=== PATIENT | female | born 1985 | race Caucasian/White ===

== ENCOUNTER 2017-10-27 15:50 | Emergency (ER) | payer OTHER ==
[~2017-10-27] VITALS: Ht 170.2 cm; Wt 90.7 kg
[~2017-10-27 15:50] MED LIST: BCP; CYCL10 PO; DICL.1SO OD; HYDACE5 PO; IBUP800 PO; MAGCIT300 PO; PENVK500 PO; SULF10OPSA OU
[2017-10-27] MEDS ORDERED: Ultram50 MG PO (16:19)
[2017-10-27] MEDS ORDERED: Cleocin HCl300 MG PO (16:19)
[2017-10-27] MEDS ORDERED: Depo-Prove150 MG/11 IM (16:20)
== END 2017-10-27 16:40 | disposition home or self-care (01) ==
LOC: ER 15:50
DX: K02.9 Dental caries, unspecified (principal); Z88.8 Allergy status to other drugs, medicaments and biological substances
CPT/HCPCS: 99281

== ENCOUNTER 2018-11-11 11:35 | Emergency (ER) | payer OTHER ==
[~2018-11-11] VITALS: Ht 170.2 cm; Wt 102.1 kg
[~2018-11-11 11:35] MED LIST changes: +Cleocin HCl300 MG PO; +Depo-Prove150 MG/11 IM; +Ultram50 MG PO
[2018-11-11] MEDS ORDERED: IBUP800 PO (12:08)
[2018-11-11 12:15] LABS: BASOPHILS ABSOLUTE AUTO 0.06 K/mm3 (0.00-0.23); BASOPHILS PERCENT AUTO 1 % (0-2); EOSINOPHILS ABSOLUTE AUTO 0.29 K/mm3 (0.00-0.68); EOSINOPHILS PERCENT AUTO 2 % (0-6); Hematocrit 47.5 % (33.0-51.0); Hemoglobin 16.1 g/dL (11.5-16.0); IMMATURE GRAN ABSOLUTE AUTO 0.05 K/mm3 (0.00-0.10); IMMATURE GRAN PERCENT AUTO 0 % (0-1); LYMPHOCYTES ABSOLUTE AUTO 3.86 K/mm3 (0.84-5.20); LYMPHOCYTES PERCENT AUTO 31 % (21-46); MONOCYTES ABSOLUTE AUTO 0.77 K/mm3 (0.16-1.47); MONOCYTES PERCENT AUTO 6 % (4-13); Mean Corpuscular HGB 30.6 pg (26.0-34.0); Mean Corpuscular HGB Conc 33.9 g/dL (31.5-36.5); Mean Corpuscular Volume 90 fL (80-100); Mean Platelet Volume 9.6 fL (9.1-12.4); NEUTROPHILS ABSOLUTE AUTO 7.27 K/mm3 (1.96-9.15); NEUTROPHILS PERCENT AUTO 59 % (41-73); Platelet Count 272 K/mm3 (150-400); RDW Standard Deviation 39.6 fL (35.1-46.3); Red Blood Cell Count 5.27 M/mm3 (3.80-5.20)
[2018-11-11 12:31] LABS: Free Thyroxine 0.96 ng/dL (0.70-1.60); Troponin I <0.015 ng/mL (0.000-0.040)
[2018-11-11 12:32] LABS: Alanine Aminotransfer (ALT/SGP 44 U/L (12-78); Albumin, Blood 4.1 g/dL (3.4-5.0); Albumin/Globulin Ratio 1.1 (0.8-1.8); Alk Phos 77 U/L (50-136); Anion Gap 8 mmol/L (6-16); Aspartate Aminotrans (AST/SGOT 22 U/L (12-37); Bilirubin, Total 0.8 mg/dL (0.1-1.0); Blood Urea Nitrogen 12 mg/dL (8-24); Bun/Creatinine Ratio 12.1 (12.0-20.0); CO2, Blood 22 mmol/L (21-32); Calcium, Blood 8.7 mg/dL (8.5-10.1); Chloride, Blood 110 mmol/L (98-108); Creatinine, Blood 0.99 mg/dL (0.40-1.00); Globulin, Blood 3.7 g/dL (2.2-4.0); Glomerular Filtration Rate >60 (60-); Glucose, Blood 114 mg/dL (70-99); Potassium, Blood 3.5 mmol/L (3.5-5.5); Sodium, Blood 140 mmol/L (136-145); Total Protein, Blood 7.8 g/dL (6.4-8.2)
[2018-11-11 12:53] LABS: Source, Urine Clean Catch
[2018-11-11 12:59] LABS: Bilirubin, Urine Neg (Neg); Blood, Urine Neg (Neg); Glucose Qualitative, Urine Neg (Neg); Ketones, Urine Neg (Neg); Leukocyte Esterase, Urine Neg (Neg); Nitrite, Urine Neg (Neg); Protein, Urine Neg (Neg); Specific Gravity, Urine 1.015 (1.003-1.022); Urobilinogen, Urine NORM (Normal)
[2018-11-11 13:01] LABS: Appearance, Urine Clear (Clear); Color, Urine Yellow (P-Yellow)
== END 2018-11-11 13:28 | disposition home or self-care (01) ==
LOC: ER 11:35
PROVIDERS: Emergency Medicine
DX: I47.1 Supraventricular tachycardia (principal); Z88.8 Allergy status to other drugs, medicaments and biological substances; Z79.899 Other long term (current) drug therapy
CPT/HCPCS: 36415; 80053; 81003; 84439; 84443; 84484; 85025; 93005; 93010; 96374; 99285-25; J0153; J2060; J7030

== ENCOUNTER → 2018-11-24 | Outpatient (CLI) | payer OTHER ==
[2018-11-26 21:06] LABS: METANEPHRINE, UR 181 ug/L (Undefined)
== END | disposition home or self-care (01) ==
LOC: LAB SHORT 09:28 → LAB 09:28
PROVIDERS: Physician Assistant Medical
DX: I47.1 Supraventricular tachycardia (principal)
CPT/HCPCS: 81050; 83835

== ENCOUNTER 2019-05-07 19:31 | Emergency (ER) | payer OTHER ==
[~2019-05-07] VITALS: Ht 170.2 cm; Wt 105.7 kg
[2019-05-07] MEDS ORDERED: AMOCLA875 PO (19:37)
[2019-05-07] MEDS ORDERED: Pepcid20 MG PO (20:57)
[2019-05-07] MEDS ORDERED: EPIPEN 2-P0.3 MG/0.3 IM (20:57)
[2019-05-07] MEDS ORDERED: Prednisone20 MG PO (20:57)
== END 2019-05-07 23:29 | disposition home or self-care (01) ==
LOC: ER 19:31
DX: L50.9 Urticaria, unspecified (principal); T36.0X5A Adverse effect of penicillins, initial encounter; Z88.8 Allergy status to other drugs, medicaments and biological substances
CPT/HCPCS: 96361; 96374; 96375; 96376; 99284-25; J1100; J1200; J7030

== ENCOUNTER → 2019-06-18 | Outpatient (CLI) | payer OTHER ==
[~2019-06-18] MED LIST changes: +AMOCLA875 PO; +EPIPEN 2-P0.3 MG/0.3 IM; +Pepcid20 MG PO; +Prednisone20 MG PO
== END | disposition home or self-care (01) ==
LOC: LAB EV 17:25 → LAB SHORT 17:25
DX: R10.10 Upper abdominal pain, unspecified (principal)
CPT/HCPCS: 87338

== ENCOUNTER 2020-08-18 08:18 | Day surgery (SDC) | payer OTHER ==
[2020-08-16 12:28] LABS: BASOPHILS ABSOLUTE AUTO 0.05 K/mm3 (0.00-0.23); BASOPHILS PERCENT AUTO 1 % (0-2); EOSINOPHILS ABSOLUTE AUTO 0.34 K/mm3 (0.00-0.68); EOSINOPHILS PERCENT AUTO 6 % (0-6); Hematocrit 45.4 % (33.0-51.0); Hemoglobin 15.2 g/dL (11.5-16.0); IMMATURE GRAN ABSOLUTE AUTO 0.04 K/mm3 (0.00-0.10); IMMATURE GRAN PERCENT AUTO 1 % (0-1); LYMPHOCYTES ABSOLUTE AUTO 1.97 K/mm3 (0.84-5.20); LYMPHOCYTES PERCENT AUTO 34 % (21-46); MONOCYTES ABSOLUTE AUTO 0.34 K/mm3 (0.16-1.47); MONOCYTES PERCENT AUTO 6 % (4-13); Mean Corpuscular HGB 29.7 pg (26.0-34.0); Mean Corpuscular HGB Conc 33.5 g/dL (31.5-36.5); Mean Corpuscular Volume 89 fL (80-100); Mean Platelet Volume 9.4 fL (9.1-12.4); NEUTROPHILS ABSOLUTE AUTO 3.08 K/mm3 (1.96-9.15); NEUTROPHILS PERCENT AUTO 53 % (41-73); Platelet Count 227 K/mm3 (150-400); RDW Coefficient Variation 12.5 % (11.7-14.2); RDW Standard Deviation 41.1 fL (35.1-46.3); Red Blood Cell Count 5.12 M/mm3 (3.80-5.20); White Blood Cell Count 5.82 K/mm3 (4.00-11.30)
[~2020-08-18] VITALS: Ht 165.1 cm; Wt 129.5 kg
[~2020-08-18 08:18] MED LIST changes: +ACET120S; +DULO60 PO; +METO50ER PO; +OMEP20ER
--- NOTE | 2020-08-18 08:50 | NUR ---
Ambulatory in Day Surgery. History, Chart, Medications and Allergies reviewed before start of procedure. Lungs clear T/O to Auscultation. Patient confirms NPO status and agrees with scheduled surgery.
[2020-08-18] MEDS ORDERED: ZYRTEC10 M2 PO (08:55)
[2020-08-18 09:56] LABS: Alanine Aminotransfer (ALT/SGP 58 U/L (12-78); Albumin/Globulin Ratio 1.1 (0.8-1.8); Alk Phos 79 U/L (50-136); Anion Gap 5 mmol/L (6-16); Aspartate Aminotrans (AST/SGOT 27 U/L (12-37); Bilirubin, Total 0.6 mg/dL (0.1-1.0); Blood Urea Nitrogen 14 mg/dL (8-24); Bun/Creatinine Ratio 16.1 (12.0-20.0); CO2, Blood 24 mmol/L (21-32); Calcium, Blood 9.3 mg/dL (8.5-10.1); Chloride, Blood 111 mmol/L (98-108); Creatinine, Blood 0.87 mg/dL (0.40-1.00); Globulin, Blood 3.8 g/dL (2.2-4.0); Glomerular Filtration Rate >60 (60-); Glucose, Blood 100 mg/dL (70-99); Potassium, Blood 4.1 mmol/L (3.5-5.5); Sodium, Blood 140 mmol/L (136-145); Total Protein, Blood 7.8 g/dL (6.4-8.2)
--- NOTE | 2020-08-18 14:58 | NUR ---
ADMIT PT ARRIVED TO UNIT AT APROX 1415 FROM PACU. REAGAN/LAP SITES X'S 4 WITH DERMABOND C/D/I AND OPEN TO AIR. PT RATES PAIN 2. DENIES N/V. GIVEN CLEAR LIQUIDS.
--- NOTE | 2020-08-18 18:33 | NUR ---
SHIFT SUMMARY PT POD 0 REAGAN MORALES, DORIAN SITES X'S 4 C/D/I. NO INCREASED DRAINAGE ON LEO PAD FROM PREVIOUS ASSESSMENT. PARTIDA PATENT, DRAINING CLEAR YELLOW URINE. DENIES N/V, TOLERATING REGULAR DIET. PAIN TOLERABLE WITH PO PAIN MEDICATION PER EMAR.
[2020-08-19 04:30] LABS: BASOPHILS ABSOLUTE AUTO 0.02 K/mm3 (0.00-0.23); BASOPHILS PERCENT AUTO 0 % (0-2); EOSINOPHILS ABSOLUTE AUTO 0.04 K/mm3 (0.00-0.68); EOSINOPHILS PERCENT AUTO 0 % (0-6); Hematocrit 40.4 % (33.0-51.0); Hemoglobin 13.5 g/dL (11.5-16.0); IMMATURE GRAN ABSOLUTE AUTO 0.06 K/mm3 (0.00-0.10); IMMATURE GRAN PERCENT AUTO 1 % (0-1); LYMPHOCYTES PERCENT AUTO 17 % (21-46); MONOCYTES ABSOLUTE AUTO 0.57 K/mm3 (0.16-1.47); MONOCYTES PERCENT AUTO 6 % (4-13); Mean Corpuscular HGB 29.8 pg (26.0-34.0); Mean Corpuscular HGB Conc 33.4 g/dL (31.5-36.5); Mean Corpuscular Volume 89 fL (80-100); Mean Platelet Volume 9.6 fL (9.1-12.4); NEUTROPHILS ABSOLUTE AUTO 6.95 K/mm3 (1.96-9.15); NEUTROPHILS PERCENT AUTO 75 % (41-73); Platelet Count 195 K/mm3 (150-400); RDW Coefficient Variation 12.8 % (11.7-14.2); Red Blood Cell Count 4.53 M/mm3 (3.80-5.20); White Blood Cell Count 9.24 K/mm3 (4.00-11.30)
--- NOTE | 2020-08-19 07:36 | NUR ---
pt allows student to participate in care
--- NOTE | 2020-08-19 07:59 | NUR ---
SHIFT SUMMARY POD#1. AAOX4. DISCOMFORT CONTROLLED WITH 2 PAIN PILLS Q6H. NO NAUSEA/EMESIS. ABD INCISIONS X4 WITH WOUND GLUE C/D/I. GOOD PO INTAKE + OUTPUT. IVF INFUSING PER ORDERS + HELGA DC'D THIS AM. PT UP WALKING SBA, TOLERATING WELL. RESTED WELL THIS AM. PT CURRENTLY SITTING UP IN BED WATCHING TV WITH CALL LIGHT IN REACH.
[2020-08-19] MEDS ORDERED: HYDR1TAB94 PO (12:26)
[2020-08-19] MEDS ORDERED: IBU800 MG PO (12:27)
[2020-08-19] MEDS ORDERED: PROM25 PO (12:28)
--- NOTE | 2020-08-19 13:32 | NUR ---
DISCHARGE INSTRUCTIONS GONE OVER WITH PT. PT STATED UNDERSTANDING ON PAIN CONTROL, NEW MEDICATIONS AND FOLLOW UP. PRESCRIPTION GIVEN TO PT. BELONGINGS GATHERED AND GIVEN TO PT. PT ESCORTED OUT TO AWAITING RIDE BY RN.
== END 2020-08-19 13:17 | disposition home or self-care (01) ==
LOC: ORSCMMR 08:18 → ORD 09:30 → ORSCMMR 09:30 → SURS 13:47 → ORSCMMR 08-19 13:17 → SURS 08-19 13:17
PROVIDERS: Obstetrics & Gynecology
PROC: 0UT94ZZ Resection of Uterus, Percutaneous Endoscopic Approach (ICD-10-PCS; principal; 2020-08-18 09:30)
PROC: 0UT74ZZ Resection of Bilateral Fallopian Tubes, Percutaneous Endoscopic Approach (ICD-10-PCS; principal; 2020-08-18 09:30)
PROC: 8E0W4CZ Robotic Assisted Procedure of Trunk Region, Percutaneous Endoscopic Approach (ICD-10-PCS; principal; 2020-08-18 09:30)
DX: N92.0 Excessive and frequent menstruation with regular cycle (principal); N94.6 Dysmenorrhea, unspecified; N94.12 Deep dyspareunia; N80.3 Endometriosis of pelvic peritoneum; D25.9 Leiomyoma of uterus, unspecified; N94.89 Other specified conditions associated with female genital organs and menstrual cycle; I10 Essential (primary) hypertension; E66.01 Morbid (severe) obesity due to excess calories; Z68.42 Body mass index [BMI] 45.0-49.9, adult; Z79.899 Other long term (current) drug therapy
CPT/HCPCS: 58571; S2900; 36415; 80053; 84702; 85025; 86850; 86900; 86901; 88307; A9270; A9270-GY; J0690; J1100; J1885; J2250; J2405; J2704; J2765; J3010; J7120

== ENCOUNTER 2021-10-18 09:26 | Observation (INO) | payer OTHER ==
[~2021-10-18] VITALS: Ht 170.2 cm; Wt 127.0 kg
[~2021-10-18 09:26] MED LIST changes: +HYDR1TAB94 PO; +IBU800 MG PO; +PROM25 PO; +ZYRTEC10 M2 PO
[2021-10-18 10:20] LABS: BASOPHILS ABSOLUTE AUTO 0.07 K/mm3 (0.00-0.23); BASOPHILS PERCENT AUTO 1 % (0-2); EOSINOPHILS ABSOLUTE AUTO 0.39 K/mm3 (0.00-0.68); EOSINOPHILS PERCENT AUTO 5 % (0-6); Hematocrit 49.2 % (33.0-51.0); Hemoglobin 16.8 g/dL (11.5-16.0); IMMATURE GRAN ABSOLUTE AUTO 0.07 K/mm3 (0.00-0.10); IMMATURE GRAN PERCENT AUTO 1 % (0-1); LYMPHOCYTES ABSOLUTE AUTO 2.78 K/mm3 (0.84-5.20); LYMPHOCYTES PERCENT AUTO 32 % (21-46); MONOCYTES ABSOLUTE AUTO 0.71 K/mm3 (0.16-1.47); MONOCYTES PERCENT AUTO 8 % (4-13); Mean Corpuscular HGB 29.8 pg (26.0-34.0); Mean Corpuscular HGB Conc 34.1 g/dL (31.5-36.5); Mean Corpuscular Volume 87 fL (80-100); Mean Platelet Volume 9.5 fL (9.1-12.4); NEUTROPHILS ABSOLUTE AUTO 4.62 K/mm3 (1.96-9.15); NEUTROPHILS PERCENT AUTO 54 % (41-73); Platelet Count 270 K/mm3 (150-400); RDW Coefficient Variation 12.4 % (11.7-14.2); RDW Standard Deviation 39.9 fL (35.1-46.3); Red Blood Cell Count 5.63 M/mm3 (3.80-5.20); White Blood Cell Count 8.64 K/mm3 (4.00-11.30)
[2021-10-18 10:39] LABS: Albumin, Blood 4.3 g/dL (3.4-5.0); Bilirubin, Total 0.4 mg/dL (0.1-1.0); Bun/Creatinine Ratio 14.2 (12.0-20.0); Calcium, Blood 9.5 mg/dL (8.5-10.1); Creatinine, Blood 0.77 mg/dL (0.40-1.00); Globulin, Blood 4.2 g/dL (2.2-4.0); Potassium, Blood 3.8 mmol/L (3.5-5.5); Total Protein, Blood 8.5 g/dL (6.4-8.2)
--- NOTE | 2021-10-18 13:44 | NUR ---
PT HAS ONE 20 G IV IN R FOREARM THAT FLUSHES WELL.
[2021-10-18 14:13] LABS: SARS-Cov-2 (COVID-19) PCR, MMC NEGATIVE (NEGATIVE)
--- NOTE | 2021-10-18 17:34 | NUR ---
PT ARRIVED TO THE UNIT AT APPROXIMATELY 1710. PT ALERT AND ORIENTED, SHE RATES PAIN AT 3/10. MARCUS DRESSING IN PLACE AND HOLDING SUCTION. WILL CONTINUE TO MONITOR.
--- NOTE | 2021-10-18 18:45 | NUR ---
PT REPORTED FEELING LIKE HER BLOOD SUGAR WAS LOW. PT REPORTS A HX OF HYPOGLYCEMIA. CBG CHECKED AND WAS 130.
--- NOTE | 2021-10-18 19:48 | NUR ---
SHIFT SUMMARY PT IS POD# [address] ROSADO. PAIN MANAGED WITH PO PAIN MEDICATION. PT REPORTS PASSING FLATUS POST-OP. SHE IS TOLERATING CLEAR LIQUIDS. PT IS TACHYCARDICA AND REPORTS HR IN THE 90'S AT BASELINE. REPORT GIVEN TO ZOILA ANTONIO.
[2021-10-19] MEDS ORDERED: Percocet 5-3251 EACH PO (10:30)
--- NOTE | 2021-10-19 11:12 | NUR ---
DISCHARGE PT PROVIDED WITH DISCHARGE INSTRUCTIONS; SHE REPORTED UNDERSTANDING. PAIN MANAGED AT TIME OF DISCHARGE. PT MET ALL GOALS BEFORE DISCHARGE, PAIN MANAGED WITH PO PAIN MEDICATION, TOLERATING PO, PASSING FLATUS, BOWEL SOUNDS ACTIVE X4 QUADRANTS AND PT ABLE TO VOID. MARCUS DRESSING INTACT AND FUNCTIONING AT TIME OF DISCHRAGE. EDUCATION REGARDING MARCUS DRESSING PROVIDED BY THIS RN AND DR. ROSADO. PT AMBULATED OUT AT APPROXIMATELY 1110.
== END 2021-10-19 11:12 | disposition home or self-care (01) ==
LOC: ER 09:26 → SURS 09:27
PROVIDERS: Physician Assistant; ADMIT Surgery
DX: K43.0 Incisional hernia with obstruction, without gangrene (principal); Z79.899 Other long term (current) drug therapy; Z20.822 Contact with and (suspected) exposure to COVID-19
CPT/HCPCS: 36415; 74177; 80053; 82947; 85025; 96374; 96375; 99285-25; A9270; C1781; J0690; J1170; J1650; J1885; J2250; J2370; J2405; J2704; J3010; J7120; Q9967; U0004